=== PATIENT | female | born 1985 | race Caucasian/White ===

== ENCOUNTER 2017-02-19 21:33 | Emergency (ER) | payer OTHER ==
--- NOTE | 2017-02-19 23:59 | ED CLINICAL REPORT ---
Clinical Report - Physicians/Mid Levels [facility] [address] [place] [address] 02/19/2017 21:38 Patient: SUNSHINE SANDERS Time Seen: 22:12; initial patient contact. Arrived- By private vehicle. Historian- patient. HISTORY OF PRESENT ILLNESS Chief Complaint: FLANK PAIN. It is described as sharp. No radiation. It is described as located in the right flank and the right abdomen. At its maximum, severity described as moderate. When seen in the E.D., severity described as mild. Modifying factors- worsened by movement. Not relieved by anything. This started about 5 days ago and is still present. It was gradual in onset and has been waxing/waning. No nausea, loss of appetite, vomiting or diarrhea. Similar symptoms previously: None. Recent medical care: Not recently seen/assessed. REVIEW OF SYSTEMS No constipation, difficulty with urination, pain with urination, urinary frequency or fever. No chills. All systems otherwise negative, except as recorded above. PAST HISTORY Negative. Problems: no known problems. Surgeries: No history of previous surgery. Medications: Ibuprofen Oral 400 mg, PRN, last dose 1300. None. Allergies: None. SOCIAL HISTORY Never smoker. Occasional alcohol use. History of drug use. ADDITIONAL NOTES The nursing notes have been reviewed. PHYSICAL EXAM Vital Signs: 02/19/2017 22:05 BP: 149/108. HR: 72. RR: 20. O2 saturation: 100%. Temp: 98.1 F. Pain level now: 8/10. Have been reviewed. Hypertensive. Heart rate normal. Respiratory rate normal. Temperature normal. Oxygen saturation normal. Appearance: Alert. Oriented X3. No acute distress. ENT: Pharynx normal. CVS: Normal heart rate and rhythm. Heart sounds normal. Respiratory: No respiratory distress. Breath sounds normal. Abdomen: Soft. Mild tenderness in the right side of the abdomen. No guarding, rebound tenderness or Woodward's sign present. Bowel sounds normal. No organomegaly. No mass. Back: Normal inspection. No CVA tenderness. Skin: Skin warm and dry. Normal skin color. Extremities: No lower extremity edema. Neuro: Oriented X 3. LABS, X-RAYS, AND EKG Laboratory Tests: UA-Culture if indicated: (ROMARIO: 02/19/2017 22:16) ( [facility] 02/19/2017 22:40) Final results Test Result Flag Units (Reference) URINE COLOR YELLOW URINE APPEARANCE CLEAR URINE GLUCOSE NEGATIVE (NEGATIVE) URINE BILIRUBIN NEGATIVE (NEGATIVE) URINE KETONE NEGATIVE (NEGATIVE) URINE SPECIFIC GRAVITY <= 1.005 L (1.010-1.030) URINE PH 5.5 (5.0-8.0) URINE PROTEIN NEGATIVE (NEGATIVE) URINE UROBILINOGEN 0.2 EU/dL (0.2-1.0) URINE NITRITE NEGATIVE (NEGATIVE) URINE BLOOD NEGATIVE (NEGATIVE) URINE LEUK ESTERASE NEGATIVE (NEGATIVE) URINE RBC RARE rbc/hpf (0-1) URINE WBC RARE wbc/hpf (0-1) URINE EPITHELIAL CELLS NONE SEEN EPI/hpf (0-5) URINE BACTERIA NONE SEEN (NONE SEEN) URINE COMMENT CULT NOT INDICATED URINE CULTURES ARE SET-UP BASED ON THE FOLLOWING CRITERIA:POSITIVE NITRITEPOSITIVE LEUKOCYTE ESTERASEGREATER THAN 10 WHITE BLOOD CELLSMODERATE (2+) OR GREATER BACTERIA Urine: (ROMARIO: 02/19/2017 22:16) ( [facility] [place] 22:33[place] Final results Test Result Flag Units (Reference) URINE NEGATIVE CBC w Diff: (ROMARIO: 02/19/2017 22:35) ( [facility] [place] 22:55) Final results Test Result Flag Units (Reference) WHITE BLOOD COUNT 9.2 K/uL (4.5-11.5) RED BLOOD COUNT 4.54 M/uL (4.00-5.20) HEMOGLOBIN 12.9 gm/dL (12.0-16.0) HEMATOCRIT 38.8 % (36.0-46.0) MEAN CELL VOLUME 85 fL (80-100) MEAN CORPUSCULAR HGB 28 pg (26-34) MEAN CORPUSCULAR HGB CONC 33 g/dL (31-37) RED CELL DISTRIBUTION WIDTH 13.1 % (11.6-14.8) PLATELET COUNT 286 K/uL (150-400) NEUTROPHIL % 50.5 % (50-75) LYMPH % 40.3 H % (25-40) MONO % 6.4 % (3-14) EOSINOPHIL % 2.1 % (0-4) BASOPHIL % 0.7 % (0-2) CMP: (ROMARIO: 02/19/2017 22:35) ( MsgRcvd 02/19/2017 23:12) Final results Test Result Flag Units (Reference) GLUCOSE 94 mg/dL (70-110) BUN 15 mg/dL (7-18) CREATININE 1.0 mg/dL (0.6-1.3) Estimated GFR >60 mL/min Estimated GFR- >60 mL/min Note: Persistent reduction over 3 months in eGFR<60 mL/min/1.73 m2 defines CKD. Patients with eGFR values>=60 mL/min/1.73 m2 may also have CKD if evidence ofpersistent proteinuria. Additional information may be foundat www.kidney.org. SODIUM 140 mmol/L (136-145) POTASSIUM 3.8 mmol/L (3.5-5.1) CHLORIDE 104 mmol/L (98-107) CARBON DIOXIDE 28 mmol/L (21-32) CALCIUM 9.1 mg/dL (8.5-10.1) TOTAL PROTEIN 7.6 g/dL (6.4-8.2) ALBUMIN 4.1 g/dL (3.3-5.0) BILIRUBIN, TOTAL 0.3 mg/dL (0.0-1.0) ALKALINE PHOSPHATASE 90 U/L (46-116) AST (SGOT) 14 L U/L (15-37) ALT (SGPT) 24 U/L (12-78) LIPASE 242 U/L (73-393) AMYLASE 42 U/L (25-115) . PROGRESS AND PROCEDURES Disposition: Discharged home in good and improved condition. Condition: good. CLINICAL IMPRESSION Abdominal muscle strain INSTRUCTIONS No lifting greater than 10 lbs until well. Your Current Medications: STOP TAKING THE FOLLOWING MEDICATIONS: Ibuprofen Oral : 400 mg PRN, Last: 1300. None*. Prescription Medications: Diclofenac 50 mg tablets: take 1 tablet orally every 8 hours as needed for pain or stiffness. Dispense thirty (30). No refill. Follow-up: Follow up with your doctor in about three days. Call for an appointment. Screening today revealed the patient's blood pressure to be in the hypertensive range. The patient should follow up with a primary care provider for blood pressure management. (Electronically signed by Navi Rodrigues Dr. 02/20/2017 5:32)
--- NOTE | 2017-02-19 23:59 | ED NURSING NOTES ---
Clinical Report - Nurses [facility] [address] [place] [address] 02/19/2017 21:38 Patient: SUNSHINE SANDERS TRIAGE Triage time 2205. Acuity: LEVEL 3. Chief Complaint: (right flank pain going into groin area started since Wednesday, has had pain off and on since then. area is sensitive to touch pressure). 22:06. --22:21 Kathrin Limon R.N. 22:05 02/19/17. BP: 149/108. HR: 72. RR: 20. O2 saturation: 100%. Temp: 98.1 F. Pain level now: 03/11. --22:21 Kathrin Limon R.N. Weight: 117.9 kg stated. Height/Length: 63 inches Per Patient. BMI: 46.1. --22:18 Kathrin Limon R.N. Medications None. --22:18 Kathrin Limon R.N. Ibuprofen Oral 400 mg, PRN, last dose 1300. --22:18 Kathrin Limon R.N. Allergies None. --22:18 Kathrin Limon R.N. History Arrived by private vehicle. Historian: patient. Accompanied by spouse. Primary physician ([facility]). The patient has had flank pain. ( c/o nausea but no vomiting). PAST MEDICAL HX: Negative. Last normal menstrual period- 02/13. SURGERY HX: Tonsillectomy. ( left ankle , right foot). SOCIAL HX: Never smoker. Occasional alcohol use. No drug use. --22:21 Kathrin Limon R.N. PROBLEMS: no known problems. Interventions ID band on patient. To treatment room. --22:21 Kathrin Limon R.N. PHYSICAL ASSESSMENT 22:05. Ambulatory to room. Patient gowned. GENERAL / NEURO / PSYCH: Alert. Oriented X 4. Appears in pain. RESPIRATORY: Respirations not labored. CVS: Capillary refill less than 2 seconds. GI / : Pain with urination. She has had frequency of urination. Urgency of urination. SKIN: Skin is warm and dry. --22:22 Kathrin Limon R.N. NURSING PROGRESS NOTES 22:05. Patient gowned. Head of bed elevated. Reassurance given. Patient identifiers checked. Call light placed in reach. Side rails up. Bed placed in lowest position. Patient ready for evaluation- chart flagged. --22:21 Kathrin Limon R.N. 22:22 02/19/17. Patient ID band checked for patient name and birthdate: patient confirmed. Clean catch urine collected with return of yellow-colored clear urine; sample sent to lab for urinalysis, culture and HCG. Specimen labeled in the presence of the patient. --22:22 Kathrin Limon R.N. 22:36 02/19/2017 Site #1 started via IV in the right antecubital space with an 20g angiocath, with aseptic technique and good blood return; one attempt. Blood drawn: rainbow set. Labeled in the presence of the patient and sent to the lab. Saline lock flushed with 10 mL saline. --22:42 Ryan Guardado R.N. 22:42 02/19/2017 Started bag #1 1000 mL IV Fluids IV NS (Saline); at 1000 mL/hr over 1 hour(s) via site #1 --22:43 Ryan Guardado R.N. 22:48 02/19/17. Care transferred and report given (Ryan Betancourt, EDRN). --22:48 Kathrin Limon R.N. 00:07 02/20/2017 Toradol IVP 30 mg given over 2 minute(s) via site #1. Allergies verified and confirmed 5 rights. IV patency established. IV site checked: no pain, redness, or swelling. IV flushed thoroughly pre- and post-medication administration. --00:13 Ryan Guardado R.N. 23:45 02/20/2017 IV Fluids IV NS Discontinued: bag #1 infused. Total amount infused: 1000 mL. IV patency established. IV site checked: no pain, redness, or swelling. IV flushed thoroughly. --00:15 Ryan Guardado R.N. 00:14. The patient is calm and resting quietly. SKIN: Skin is warm and dry. Skin color within normal limits. --00:18 Ryan Guardado R.N. DISPOSITION / DISCHARGE 00:12 02/20/2017 Site #1 removed upon discharge. Catheter intact. Bandage applied. --00:17 Ryan Guardado R.N. Departure time: 00:15. Condition at departure: improved and stable. No learning barriers present. Discharge instructions provided and reviewed with the patient. Reviewed medication(s) side effects, precautions, dosing and course information. Prescription(s) given to the patient. Patient verbalized understanding. Written instructions provided in Azeri. The patient was discharged home and accompanied by spouse. She left the Emergency Department ambulatory and via private vehicle. Spouse driving. FALL RISK ASSESSMENT: Fall risk assessment completed. No fall risk identified. --00:18 Ryan Guardado R.N. 00:15 02/20/17. BP: 109/66. HR: 58. RR: 15. O2 saturation: 100% on room air. Pain level now: 01/09. --00:18 Ryan Guardado R.N. Locked/Released at 02/20/2017 15:32 by Kathrin Limon R.N.
--- NOTE | 2017-02-19 23:59 | ED ORDER SUMMARY ---
..... Patient: SUNSHINE SANDERS OrderSheet [facility] VisitID: [id number] [place] [address] 31y, F Registration Date/Time: 02/19/2017 ORDER SHEET Weight: 117.9 kg (stated) Allergies: None GENERAL ORDERS: UA-Culture if indicated Urgent (22:22 02/19/2017 DDean R.N. per protocol) (22:32 CHagerty ER Table Games Manager) Urine Urgent (22:02/19/2017 DDean R.N. per protocol) (22:32 CHagerty ER Table Games Manager) CBC w Diff Urgent (22:02/19/2017 Mati Peacock) (Ack 22:32 Oumarerty ER Table Games Manager) (22:43 JQuivey R.N.) CMP Urgent (22:02/19/2017 Mati Peacock) (Ack 22:32 Oumarerty ER Table Games Manager) (22:43 JQuivey R.N.) Amylase Urgent (22:31 02/19/2017 Mati Peacock) (Ack 22:32 Oumarerty ER Table Games Manager) (22:43 JQuivey R.N.) Lipase Urgent (22:02/19/2017 Mati Peacock) (Ack 22:32 Oumarerty ER Table Games Manager) (22:43 JQuivey R.N.) MEDICATION ORDERS: IV FLUIDS: IV NS : initial bolus none -, then 1000 mL/hr for X1 (NOW) (22:31 02/19/2017 Mati Peacock) (Ack 22:32 JQuivey R.N.) (22:43 JQuivey R.N.) Toradol IV 30 mg (NOW) (23:57 02/19/2017 Mati Peacock) (Ack 0:04 JQuivey R.N.) (0:13 JQuivey R.N.) ORDER SHEET NOTES: [Electronically signed by Navi Rodrigues Dr. (05:32 02/20/2017)] [Electronically signed by Kathrin Limon R.N. (15:32 02/20/2017)] [Electronically locked/signed by Kathrin Limon R.N. (15:32 02/20/2017)]
--- NOTE | 2017-02-19 23:59 | ED NURSING NOTES ---
Clinical Report - Nurses [facility] [address] [place] [address] 02/19/2017 21:38 Patient: SUNSHINE SANDERS TRIAGE Triage time 2205. Acuity: LEVEL 3. Chief Complaint: (right flank pain going into groin area started since Wednesday, has had pain off and on since then. area is sensitive to touch pressure). 22:06. --22:21 Kathrin Limon R.N. 22:05 02/19/17. BP: 149/108. HR: 72. RR: 20. O2 saturation: 100%. Temp: 98.1 F. Pain level now: 03/11. --22:21 Kathrin Limon R.N. Weight: 117.9 kg stated. Height/Length: 63 inches Per Patient. BMI: 46.1. --22:18 Kathrin Limon R.N. Medications None. --22:18 Kathrin Limon R.N. Ibuprofen Oral 400 mg, PRN, last dose 1300. --22:18 Kathrin Limon R.N. Allergies None. --22:18 Kathrin Limon R.N. History Arrived by private vehicle. Historian: patient. Accompanied by spouse. Primary physician ([facility]). The patient has had flank pain. ( c/o nausea but no vomiting). PAST MEDICAL HX: Negative. Last normal menstrual period- 02/13. SURGERY HX: Tonsillectomy. ( left ankle , right foot). SOCIAL HX: Never smoker. Occasional alcohol use. No drug use. --22:21 Kathrin Limon R.N. PROBLEMS: no known problems. Interventions ID band on patient. To treatment room. --22:21 Kathrin Limon R.N. PHYSICAL ASSESSMENT 22:05. Ambulatory to room. Patient gowned. GENERAL / NEURO / PSYCH: Alert. Oriented X 4. Appears in pain. RESPIRATORY: Respirations not labored. CVS: Capillary refill less than 2 seconds. GI / : Pain with urination. She has had frequency of urination. Urgency of urination. SKIN: Skin is warm and dry. --22:22 Kathrin Limon R.N. NURSING PROGRESS NOTES 22:05. Patient gowned. Head of bed elevated. Reassurance given. Patient identifiers checked. Call light placed in reach. Side rails up. Bed placed in lowest position. Patient ready for evaluation- chart flagged. --22:21 Kathrin Limon R.N. 22:22 02/19/17. Patient ID band checked for patient name and birthdate: patient confirmed. Clean catch urine collected with return of yellow-colored clear urine; sample sent to lab for urinalysis, culture and HCG. Specimen labeled in the presence of the patient. --22:22 Kathrin Limon R.N. 22:36 02/19/2017 Site #1 started via IV in the right antecubital space with an 20g angiocath, with aseptic technique and good blood return; one attempt. Blood drawn: rainbow set. Labeled in the presence of the patient and sent to the lab. Saline lock flushed with 10 mL saline. --22:42 Ryan Guardado R.N. 22:42 02/19/2017 Started bag #1 1000 mL IV Fluids IV NS (Saline); at 1000 mL/hr over 1 hour(s) via site #1 --22:43 Ryan Guardado R.N. 22:48 02/19/17. Care transferred and report given (Ryan Beatncourt, EDRN). --22:48 Kathrin Limon R.N. 00:07 02/20/2017 Toradol IVP 30 mg given over 2 minute(s) via site #1. Allergies verified and confirmed 5 rights. IV patency established. IV site checked: no pain, redness, or swelling. IV flushed thoroughly pre- and post-medication administration. --00:13 Ryan Guardado R.N. 23:45 02/20/2017 IV Fluids IV NS Discontinued: bag #1 infused. Total amount infused: 1000 mL. IV patency established. IV site checked: no pain, redness, or swelling. IV flushed thoroughly. --00:15 Ryan Guardado R.N. 00:14. The patient is calm and resting quietly. SKIN: Skin is warm and dry. Skin color within normal limits. --00:18 Ryan Guardado R.N. DISPOSITION / DISCHARGE 00:12 02/20/2017 Site #1 removed upon discharge. Catheter intact. Bandage applied. --00:17 Ryan Guardado R.N. Departure time: 00:15. Condition at departure: improved and stable. No learning barriers present. Discharge instructions provided and reviewed with the patient. Reviewed medication(s) side effects, precautions, dosing and course information. Prescription(s) given to the patient. Patient verbalized understanding. Written instructions provided in Polish. The patient was discharged home and accompanied by spouse. She left the Emergency Department ambulatory and via private vehicle. Spouse driving. FALL RISK ASSESSMENT: Fall risk assessment completed. No fall risk identified. --00:18 Ryan Guardado R.N. 00:15 02/20/17. BP: 109/66. HR: 58. RR: 15. O2 saturation: 100% on room air. Pain level now: 01/09. --00:18 Ryan Guardado R.N. Locked/Released at 02/20/2017 15:32 by Kathrin Limon R.N.
--- NOTE | 2017-02-19 23:59 | ED ORDER SUMMARY ---
..... Patient: SUNSHINE SANDERS OrderSheet [facility] VisitID: [id number] [place] [address] 31y, F Registration Date/Time: 02/19/2017 ORDER SHEET Weight: 117.9 kg (stated) Allergies: None GENERAL ORDERS: UA-Culture if indicated Urgent (22:22 02/19/2017 DDean R.N. per protocol) (22:32 CHagerty ER Rn Midwife) Urine Urgent (22:02/19/2017 DDean R.N. per protocol) (22:32 CHagerty ER Rn Midwife) CBC w Diff Urgent (22:02/19/2017 Mati Peacock) (Ack 22:32 Oumarerty ER Rn Midwife) (22:43 JQuivey R.N.) CMP Urgent (22:02/19/2017 Mati Peacock) (Ack 22:32 Oumarerty ER Rn Midwife) (22:43 JQuivey R.N.) Amylase Urgent (22:31 02/19/2017 Mati Peacock) (Ack 22:32 Oumarerty ER Rn Midwife) (22:43 JQuivey R.N.) Lipase Urgent (22:02/19/2017 Mati Peacock) (Ack 22:32 Oumarerty ER Rn Midwife) (22:43 JQuivey R.N.) MEDICATION ORDERS: IV FLUIDS: IV NS : initial bolus none -, then 1000 mL/hr for X1 (NOW) (22:31 02/19/2017 Mati Peacock) (Ack 22:32 JQuivey R.N.) (22:43 JQuivey R.N.) Toradol IV 30 mg (NOW) (23:57 02/19/2017 Mati Peacock) (Ack 0:04 JQuivey R.N.) (0:13 JQuivey R.N.) ORDER SHEET NOTES: [Electronically signed by Navi Rodrigues Dr. (05:32 02/20/2017)] [Electronically signed by Kathrin Limon R.N. (15:32 02/20/2017)] [Electronically locked/signed by Kathrin Limon R.N. (15:32 02/20/2017)]
--- NOTE | 2017-02-20 15:33 | ED DISCHARGE INSTRUCTIONS ---
Patient: SUNSHINE SANDERS General Instructions Merged [facility] VisitID: [id number] [place] [address] 31y, F Registration Date/Time: 02/19/2017 Abdominal muscle strain INSTRUCTIONS No lifting greater than 10 lbs until well. Your Current Medications: STOP TAKING THE FOLLOWING MEDICATIONS: Ibuprofen Oral : 400 mg PRN, Last: 1300. None*. Prescription Medications: Diclofenac 50 mg tablets: take 1 tablet orally every 8 hours as needed for pain or stiffness. Dispense thirty (30). No refill. Follow-up: Follow up with your doctor in about three days. Call for an appointment. Screening today revealed the patient's blood pressure to be in the hypertensive range. The patient should follow up with a primary care provider for blood pressure management. ADDITIONAL INFORMATION Muscle Strain, Abdomen A muscle strain is a stretching and tearing of muscle fibers. The abdomen is protected by a thick wall of muscle in the front and sides. These muscles help with twisting and bending forward. Repeated coughing, lifting heavy objects or sudden jerking movements can sometimes cause a muscle strain in the abdomen. This causes pain that is worse when you move. The area may also feel tender or be swollen and bruised. Home Care: Make an ice pack (ice cubes in a plastic bag, wrapped in a towel) and apply over the injured area for 20 minutes every 1-2 hours the first day. You should continue with ice packs 3-4 times a day for the next two days. Continue the use of ice packs for relief of pain and swelling as needed. You may use acetaminophen (Tylenol) or ibuprofen (Motrin, Advil) to control pain, unless another pain medicine was prescribed. [NOTE: If you have liver or kidney disease, a stomach ulcer or GI bleeding, talk with your doctor before using these medicines.] Follow Up with your doctor or this facility if you are not improving within the next five days. Get Prompt Medical Attention if any of the following occur: Pain increases or moves to the right lower abdomen (just below the waistline) Fever of 100.4 F (38 C) or higher, or as directed by your healthcare provider Vomiting Severe abdominal pain that spreads to the back or toward the groin Dizziness, weakness or fainting Blood in the urine Unexpected vaginal bleeding (for women) You have been given the following additional information: Muscle Strain, Abdomen No lifting greater than 10 lbs until well. (Electronically signed by Navi Rodrigues Dr. 02/20/2017 5:32)
--- NOTE | 2017-02-20 15:33 | ED MED RECONCILIATION SUMMARY ---
Patient: SUNSHINE SANDERS Medication Reconciliation Report [facility] VisitID: [id number] [address] [place] [address] 31y, F Registration Date/Time: 02/19/2017 Weight: 117.9 kg Height/Length: 63 in. BMI: 46.1 ALLERGIES: None The patient's Home Medications are listed below: STOP TAKING THE FOLLOWING MEDICATIONS: Ibuprofen Oral 400 mg, PRN, last dose: 1300 The source(s) of the original Home Medication information: Not obtained. The following Medications were given to the patient in the Emergency Department: IV NS IV Fluids bolus 0, then 1000 mL/hr, administered: 02/19/2017 10:42:00 PM Toradol [IVP] IVP 30 mg, administered: 02/20/2017 12:07:00 AM The following Medications were prescribed to the patient: Diclofenac 50 mg tablets: take 1 tablet orally every 8 hours as needed for pain or stiffness. Dispense thirty (30). No refill. -- Navi Rodrigues Dr.
--- NOTE | 2017-02-20 15:33 | ED MED RECONCILIATION SUMMARY ---
Patient: SUNSHINE SANDERS Medication Reconciliation Report [facility] VisitID: [id number] [address] [place] [address] 31y, F Registration Date/Time: 02/19/2017 Weight: 117.9 kg Height/Length: 63 in. BMI: 46.1 ALLERGIES: None The patient's Home Medications are listed below: STOP TAKING THE FOLLOWING MEDICATIONS: Ibuprofen Oral 400 mg, PRN, last dose: 1300 The source(s) of the original Home Medication information: Not obtained. The following Medications were given to the patient in the Emergency Department: IV NS IV Fluids bolus 0, then 1000 mL/hr, administered: 02/19/2017 10:42:00 PM Toradol [IVP] IVP 30 mg, administered: 02/20/2017 12:07:00 AM The following Medications were prescribed to the patient: Diclofenac 50 mg tablets: take 1 tablet orally every 8 hours as needed for pain or stiffness. Dispense thirty (30). No refill. -- Navi Rodrigues Dr.
--- NOTE | 2017-02-20 15:33 | ED DISCHARGE INSTRUCTIONS ---
Patient: SUNSHINE SANDERS General Instructions [facility] VisitID: [id number] [place] [address] 31y, F Registration Date/Time: 02/19/2017 Abdominal muscle strain INSTRUCTIONS No lifting greater than 10 lbs until well. Your Current Medications: STOP TAKING THE FOLLOWING MEDICATIONS: Ibuprofen Oral : 400 mg PRN, Last: 1300. None*. Prescription Medications: Diclofenac 50 mg tablets: take 1 tablet orally every 8 hours as needed for pain or stiffness. Dispense thirty (30). No refill. Follow-up: Follow up with your doctor in about three days. Call for an appointment. Screening today revealed the patient's blood pressure to be in the hypertensive range. The patient should follow up with a primary care provider for blood pressure management. ADDITIONAL INFORMATION Muscle Strain, Abdomen A muscle strain is a stretching and tearing of muscle fibers. The abdomen is protected by a thick wall of muscle in the front and sides. These muscles help with twisting and bending forward. Repeated coughing, lifting heavy objects or sudden jerking movements can sometimes cause a muscle strain in the abdomen. This causes pain that is worse when you move. The area may also feel tender or be swollen and bruised. Home Care: Make an ice pack (ice cubes in a plastic bag, wrapped in a towel) and apply over the injured area for 20 minutes every 1-2 hours the first day. You should continue with ice packs 3-4 times a day for the next two days. Continue the use of ice packs for relief of pain and swelling as needed. You may use acetaminophen (Tylenol) or ibuprofen (Motrin, Advil) to control pain, unless another pain medicine was prescribed. [NOTE: If you have liver or kidney disease, a stomach ulcer or GI bleeding, talk with your doctor before using these medicines.] Follow Up with your doctor or this facility if you are not improving within the next five days. Get Prompt Medical Attention if any of the following occur: Pain increases or moves to the right lower abdomen (just below the waistline) Fever of 100.4 F (38 C) or higher, or as directed by your healthcare provider Vomiting Severe abdominal pain that spreads to the back or toward the groin Dizziness, weakness or fainting Blood in the urine Unexpected vaginal bleeding (for women) You have been given the following additional information: Muscle Strain, Abdomen No lifting greater than 10 lbs until well. (Electronically signed by Navi Rodrigues Dr. 02/20/2017 5:32)
--- NOTE | 2017-02-20 15:33 | ED MAR SUMMARY ---
..... Medication Administration Record [facility] [address] [place] [address] Patient: SUNSHINE SANDERS Visit ID: [id number] 31y, F Weight: 117.9 kg Height/Length: 63 in BMI: 46.1 ALLERGIES: None Start 22:42 02/19/2017 Ryan Guardado RChrisN., Stop 23:45 02/20/2017 Ryan Guardado R.N. Medication Administered: IV NS (SALINE), Dose: IV Fluids over 1 hour(s), Rate: 1000 mL/hr, Dispensed: 1000 mL bag, Site: #1 right AC. Medication Ordered: IV NS : initial bolus none -, then 1000 mL/hr for X1 (NOW). Given 00:07 02/20/2017 Ryan Guardado RChrisN. Medication Administered: TORADOL [IVP], Dose: 30 mg IVP over 2 minute(s), Site: #1 right AC. Medication Ordered: Toradol IV 30 mg (NOW).
--- NOTE | 2017-02-20 15:33 | ED MAR SUMMARY ---
..... Medication Administration Record [facility] [address] [place] [address] Patient: SUNSHINE SANDERS Visit ID: [id number] 31y, F Weight: 117.9 kg Height/Length: 63 in BMI: 46.1 ALLERGIES: None Start 22:42 02/19/2017 Ryan Guardado RChrisN., Stop 23:45 02/20/2017 Ryan Guardado R.N. Medication Administered: IV NS (SALINE), Dose: IV Fluids over 1 hour(s), Rate: 1000 mL/hr, Dispensed: 1000 mL bag, Site: #1 right AC. Medication Ordered: IV NS : initial bolus none -, then 1000 mL/hr for X1 (NOW). Given 00:07 02/20/2017 Ryan Guardado RChrisN. Medication Administered: TORADOL [IVP], Dose: 30 mg IVP over 2 minute(s), Site: #1 right AC. Medication Ordered: Toradol IV 30 mg (NOW).
== END 2017-02-20 00:15 | disposition home or self-care (01) ==
LOC: ED SRH 21:33
DX: S39.011A Strain of muscle, fascia and tendon of abdomen, initial encounter (principal); R11.0 Nausea; X58.XXXA Exposure to other specified factors, initial encounter; Y93.9 Activity, unspecified; Y99.9 Unspecified external cause status; Y92.9 Unspecified place or not applicable
CPT/HCPCS: 90004; 90100; 92235; 92530; 93070; 95059